=== PATIENT | female | born 1990 | race Caucasian/White ===

== ENCOUNTER 2020-08-05 14:43 | Emergency (ER) | payer OTHER, SELFPAY ==
--- NOTE | 2020-08-05 | XR_ITS ---
EXAMINATION: XR SHOULDER, LEFT CLINICAL INFORMATION: Pain COMPARISON: None TECHNIQUE: Two views of the left shoulder. FINDINGS: The bones and soft tissues are normal. No fracture. Glenohumeral and acromioclavicular alignment is anatomic with normal joint space. No abnormal soft tissue calcifications. IMPRESSION: Normal left shoulder.
[2020-08-05 15:51] VITALS: BP 119/77; PULSE 90; RESP 16; TEMP 36.2; O2SAT 96; BMI 38.4
--- NOTE | 2020-08-05 16:15 | ED.EXTPRO ---
HPI - Extremity Problem General Chief complaint: Extremity Injury, Upper <Lakeshia Heart NP - Last Filed: 08/05/20 16:48> Stated complaint: Sholder Pain <Lakeshia Heart NP - Last Filed: 08/05/20 16:48> Time Seen by Provider: 08/05/20 16:11 <Lakeshia Heart NP - Last Filed: 08/05/20 16:48> Source: patient <Lakeshia Heart NP - Last Filed: 08/05/20 16:48> Mode of arrival: ambulatory <Lakeshia Heart NP - Last Filed: 08/05/20 16:48> Limitations: no limitations <Lakeshia Heart NP - Last Filed: 08/05/20 16:48> History of Present Illness HPI Narrative: Patient was moving a patient at work and felt pain in her left shoulder. <HALIMA Valles Last Filed: 08/05/20 16:48> MD Complaint: extremity pain <HALIMA Valles Last Filed: 08/05/20 16:48> Onset (ago): minute(s) <HALIMA Valles Last Filed: 08/05/20 16:48> Pain Consistency: constant <HALIMA Valles Last Filed: 08/05/20 16:48> Location: left <Lakeshia Heart NP - Last Filed: 08/05/20 16:48> Quality: sharp <HALIMA Valles Last Filed: 08/05/20 16:48> Radiation: none <HALIMA Valles Last Filed: 08/05/20 16:48> Relieving factors: immobilization <HALIMA Valles Last Filed: 08/05/20 16:48> Exacerbating factors: range of motion <Lakeshia Heart NP - Last Filed: 08/05/20 16:48> Associated symptoms: denies other symptoms <HALIMA Valles Last Filed: 08/05/20 16:48> Related Data Home medications: Previous Rx's Medication Instructions Recorded naproxen 500 mg PO BID #20 tab 08/05/20 <Lakeshia Heart NP - Last Filed: 08/05/20 16:48> Allergies/Adverse reactions: Allergies Allergy/AdvReac Type Severity Reaction Status Date / Time No Known Allergies Allergy Verified 08/05/20 14:49 <Lakeshia Heart NP - Last Filed: 08/05/20 16:48> Review of Systems Review of Systems: Yes all other systems are reviewed and are negative <Lakeshia Heart NP - Last Filed: 08/05/20 16:48> Constitutional: Constitutional: Reports no additional constitutional complaints, Denies chills and Denies fever(s) <Lakeshia Heart NP - Last Filed: 08/05/20 16:48> Eyes: Eyes: Reports no additional eye complaints and Denies change in vision <Lakeshia Heart NP - Last Filed: 08/05/20 16:48> ENT: Reports system reviewed and no additional complaints, except as documented, Denies nasal congestion and Denies nasal discharge <Lakeshia Heart NP - Last Filed: 08/05/20 16:48> Cardiovascular: Cardiovascular: Reports no additional cardiovascular complaints, Denies chest pain, Denies leg edema and Denies dyspnea <Lakeshia Heart NP - Last Filed: 08/05/20 16:48> Respiratory: Respiratory: Reports no additional respiratory complaints, Denies cough and Denies dyspnea <Lakeshia Heart NP - Last Filed: 08/05/20 16:48> Gastrointestinal: Gastrointestinal: Denies abdominal pain, Denies diarrhea, Denies nausea and Denies vomiting <Lakeshia Heart NP - Last Filed: 08/05/20 16:48> Musculoskeletal: Musculoskeletal: Reports no additional musculoskeletal complaints, Reports arthralgias, Denies muscle weakness, Denies numbness and Denies tingling <Lakeshia Heart NP - Last Filed: 08/05/20 16:48> Integumentary/Breasts: Skin/Breast: Reports system reviewed and no additional complaints, except as docu and Denies rash <Lakeshia Heart NP - Last Filed: 08/05/20 16:48> Neurologic: Reports system reviewed and no additional complaints, except as documented, Denies numbness and Denies tingling <Lakeshia Heart NP - Last Filed: 08/05/20 16:48> PMF Past Medical History Attestation statement: The following information was validated with the patient. <Lakeshia Heart NP - Last Filed: 08/05/20 16:48> Source: obtained from family and nursing notes reviewed <Lakeshia Heart NP - Last Filed: 08/05/20 16:48> Social History Social History: Social History Smoking Status: Never smoker Use of substances other than those prescribed or required for medical reasons: No Advance Directives: No Advance Directives Information Provided: Yes <Lakeshia Heart NP - Last Filed: 08/05/20 16:48> Physical Exam Vital Signs and I&O and Narrative: Vital Signs and I&O: Vital Signs Temp 97.1 F 08/05/20 15:51 Pulse 90 08/05/20 15:51 Resp 16 08/05/20 15:51 BP 119/77 08/05/20 15:51 Pulse Ox 96 08/05/20 15:51 Intake & Output 08/05/20 08/05/20 08/06/20 06:59 18:59 06:59 Weight 95.254 kg Body Mass Index 38.4 <Lakeshia Heart NP - Last Filed: 08/05/20 16:48> Vital Signs and I&O: Vital Signs Temp 97.1 F 08/05/20 15:51 Pulse 90 08/05/20 15:51 Resp 16 08/05/20 15:51 BP 119/77 08/05/20 15:51 Pulse Ox 96 08/05/20 15:51 Intake & Output 08/05/20 08/05/20 08/06/20 06:59 18:59 06:59 Weight 95.254 kg Body Mass Index 38.4 <Nima Anne DO - Last Filed: 08/06/20 02:14> Const: General: cooperative, healthy appearing, comfortable, no acute distress and well developed <Lakeshia Heart NP - Last Filed: 08/05/20 16:48> Orientation/consciousness: patient oriented x3 <Lakeshia Heart NP - Last Filed: 08/05/20 16:48> Limitations: no limitations <Lakeshia Heart NP - Last Filed: 08/05/20 16:48> HENMT: Head: Yes normal to inspection <Lakeshia Heart NP - Last Filed: 08/05/20 16:48> Ears: hearing grossly normal bilaterally <Lakeshia Heart NP - Last Filed: 08/05/20 16:48> General nose exam: Normal external nose present <Lakeshia Heart NP - Last Filed: 08/05/20 16:48> Face and sinus: Yes normal facial exam <Lakeshia Heart NP - Last Filed: 08/05/20 16:48> Mouth: Normal oral and palatal mucosa present <Lakeshia Heart NP - Last Filed: 08/05/20 16:48> Eyes: General: appearance normal, both eyes and all related structures <Lakeshia Heart NP - Last Filed: 08/05/20 16:48> Neck: Neck: Yes normal visual inspection <Lakeshia Heart NP - Last Filed: 08/05/20 16:48> Chest: Chest palpation & inspection: normal inspection of the chest <Lakeshia Heart NP - Last Filed: 08/05/20 16:48> Resp: Effort & Inspection: normal respiratory effort <Lakeshia Heart NP - Last Filed: 08/05/20 16:48> Cardio: Rate: regular rate <Lakeshia Heart NP - Last Filed: 08/05/20 16:48> Rhythm: regular rhythm <Lakeshia Heart NP - Last Filed: 08/05/20 16:48> Peripheral pulses: radial pulses present and ulnar radial pulses present <Lakeshia Heart NP - Last Filed: 08/05/20 16:48> GI: Inspection: Yes normal to inspection <Lakeshia Heart NP - Last Filed: 08/05/20 16:48> Back/Spine/Pelvis: Thoracic/Lumbar Spine: thoracic and lumbar spine normal to inspection <HALIMA Valles Last Filed: 08/05/20 16:48> Skin: General skin exam: no rashes or lesions noted <HALIMA Valles Last Filed: 08/05/20 16:48> Neuro: General: patient oriented x3, Normal light touch and pain sensation, no focal motor deficits and normal sensation to monofilament <HALIMA Valles Last Filed: 08/05/20 16:48> Gait exam (Neuro): Normal gait present <HALIMA Valles Last Filed: 08/05/20 16:48> Extrem: General: Yes normal to inspection <HALIMA Valles Last Filed: 08/05/20 16:48> Left upper extremity: normal to inspection, full ROM (pain with abduction of left shoulder), normal capillary refill and shoulder/upper arm (Pain over anterior shoulder); no edema and joint enlargement noted <HALIMA Valles Last Filed: 08/05/20 16:48> MDM - Extremity (Nontraumatic) MDM Narrative Medical decision making narrative: X-rays unremarkable. Pain over anterior shoulder and may have small AC tear, also pain with abduction so considered rotator cuff tear. Will need close f/u with occupational health. Reviewed worrisome signs/symptoms with the patient and when to return to the ED. comfortable with discharge home. <HALIMA Valles Last Filed: 08/05/20 16:48> Imaging Data shoulder x-ray: My impression: unremarkable <HALIMA Valles Last Filed: 08/05/20 16:48> Radiologist's impression: EXAMINATION: XR SHOULDER, LEFT CLINICAL INFORMATION: Pain COMPARISON: None TECHNIQUE: Two views of the left shoulder. FINDINGS: The bones and soft tissues are normal. No fracture. Glenohumeral and acromioclavicular alignment is anatomic with normal joint space. No abnormal soft tissue calcifications. IMPRESSION: Normal left shoulder. <HALIMA Valles Last Filed: 08/05/20 16:48> Discharge Plan Discharge Clinical Impression: Sprain <Lakeshia Heart NP - Last Filed: 08/05/20 16:48> Patient Disposition: Home, Self-Care <Lakeshia Heart NP - Last Filed: 08/05/20 16:48> Instructions: Shoulder Sprain (ED) <Lakeshia Heart NP - Last Filed: 08/05/20 16:48> Additional Instructions: Ice to the area Limit use of the extremity Call work connection tomorrow morning for a follow-up appointment at [id number] <Lakeshia Heart NP - Last Filed: 08/05/20 16:48> Prescriptions: New naproxen 500 mg tablet 500 mg PO BID Qty: 20 RF: 0 <Lakeshia Heart NP - Last Filed: 08/05/20 16:48> Referrals: Physician,Unknown [Primary Care Provider] - 2 days (work connection ) <Lakeshia Heart NP - Last Filed: 08/05/20 16:48> Stand Alone Forms: Work/School Release <Lakeshia Heart NP - Last Filed: 08/05/20 16:48> Interventions: ED Discharge Assessment Last Done: 08/05/20 16:51 <Lakeshia Heart NP - Last Filed: 08/05/20 16:48> Discharge Date/Time: 08/05/20 16:45 <Lakeshia Heart NP - Last Filed: 08/05/20 16:48>
== END 2020-08-05 16:45 | disposition home or self-care (01) ==
PROVIDERS: Emergency Provider Emergency Medicine
DX: S43.402A Unspecified sprain of left shoulder joint, initial encounter (principal); M25.512 Pain in left shoulder; X50.0XXA Overexertion from strenuous movement or load, initial encounter; X50.9XXA Other and unspecified overexertion or strenuous movements or postures, initial encounter; Y93.F2 Activity, caregiving, lifting; Y92.239 Unspecified place in hospital as the place of occurrence of the external cause; Y99.0 Civilian activity done for income or pay
CPT/HCPCS: 73030; 99283; 99284